=== PATIENT | female | born 1930 | race Caucasian/White ===

== ENCOUNTER → 2016-04-30 | Outpatient (CLI) | payer MEDICARE, OTHER ==
--- NOTE | 2016-04-30 10:33 | RAD ---
EXAM DESCRIPTION: Right hip series. CLINICAL HISTORY: Right ORIF femoral fracture. COMPARISON: April 11, 2016 TECHNIQUE: Two views were submitted for evaluation. FINDINGS: Healing intertrochanteric right femoral neck fracture. There is slight increased callus formation about the fracture site. Hardware is in appropriate position. No new findings IMPRESSION: Increased callus formation about the proximal femoral intertrochanteric fracture. Electronically signed by: Rayo Easton MD 04/30/2016 10:31
--- NOTE | 2016-04-30 10:35 | RAD ---
EXAM DESCRIPTION: XR WRIST 3 OR MORE VIEWS CLINICAL HISTORY: 86 y/o ,F, CLOSED FX OF DISTAL END OF RADIUS COMPARISON: April 11, 2016 IMPRESSION: Impaction fracture of the distal radius again noted. Angulation is unchanged. Callus formation has increased about the fracture site compatible with healing. Old distal ulnar-styloid process fracture again noted. Severe degenerative change of the base of the hand he 1st interphalangeal joint. Electronically signed by: Rayo Easton MD 04/30/2016 10:33
== END ==
LOC: RAD 09:22
PROVIDERS: ATTEND Orthopaedic Surgery
DX: S72.001D Fracture of unspecified part of neck of right femur, subsequent encounter for closed fracture with routine healing (principal); S52.591D Other fractures of lower end of right radius, subsequent encounter for closed fracture with routine healing

== ENCOUNTER → 2016-05-23 | Outpatient (CLI) | payer MEDICARE, OTHER ==
--- NOTE | 2016-05-23 10:12 | RAD ---
EXAM DESCRIPTION: Right hip series. CLINICAL HISTORY: Right hip fracture COMPARISON: April 11, 2016 TECHNIQUE: Two views were submitted for evaluation. FINDINGS: ORIF of a right intertrochanteric proximal femoral fracture. Fracture is likely healed. No evidence of hardware failure or osteolysis. IMPRESSION: Likely healed intertrochanteric fracture of right hip. The fracture line is poorly visualized on today's study. Electronically signed by: Rayo Easton MD 05/23/2016 10:11
--- NOTE | 2016-05-23 10:14 | RAD ---
EXAM DESCRIPTION: XR WRIST 3 OR MORE VIEWS CLINICAL HISTORY: 86 y/o ,F, FX DISTAL RADIUS COMPARISON: April 30, 2016. IMPRESSION: Impaction fracture of the distal radius with avulsion injury of the ulna styloid process. No definitive callus formation is noted on today's study. There may be increasing dorsal angulation of the distal fracture fragment when compared to prior. Electronically signed by: Rayo Easton MD 05/23/2016 10:13
== END ==
LOC: RAD 09:41
PROVIDERS: ATTEND Orthopaedic Surgery
DX: S52.591D Other fractures of lower end of right radius, subsequent encounter for closed fracture with routine healing (principal); S72.001D Fracture of unspecified part of neck of right femur, subsequent encounter for closed fracture with routine healing

== ENCOUNTER → 2016-06-13 | Outpatient (CLI) | payer MEDICARE, OTHER ==
--- NOTE | 2016-06-13 09:27 | RAD ---
EXAM DESCRIPTION: XR WRIST 3 OR MORE VIEWS CLINICAL HISTORY: 86 y/o ,F, FX COMPARISON: May 23, 2016 IMPRESSION: Impaction fracture of the distal radius with avulsion injury of the ulna styloid process. The fracture line is less apparent which is suggestive of increased healing. Stable dorsal angulation of the distal fracture fragment. Electronically signed by: Rayo Easton MD 06/13/2016 09:27
--- NOTE | 2016-06-13 09:35 | RAD ---
EXAM DESCRIPTION: XR HIP 2 OR MORE VIEWS CLINICAL HISTORY: FX COMPARISON: 23 May 2016 TECHNIQUE: AP/frog leg lateral FINDINGS: A gamma nail is observed in the right hip. Position is unchanged from the prior exam. Callus formation is observed at the fracture site. Degenerative changes are observed in the right sacroiliac joint. IMPRESSION: A gamma nail is observed bridging a prior fracture of the right hip. Callus formation is observed at the fracture site. There has been no interval change. Electronically signed by: Waldemar Biggs MD 06/13/2016 09:34
== END | disposition home or self-care (01) ==
LOC: RAD 08:45
PROVIDERS: ATTEND Orthopaedic Surgery
DX: S52.591D Other fractures of lower end of right radius, subsequent encounter for closed fracture with routine healing (principal)

== ENCOUNTER 2016-07-06 21:06 | Emergency (ER) | payer MEDICARE, OTHER ==
[2016-07-06 21:23] VITALS: O2SAT 98
[2016-07-06] MEDS ORDERED: ONDANSETRON INJ 4 MG/2 ML VIAL IV ONE (21:44)
[2016-07-06] MEDS ORDERED: NITROFURANTOIN MONOHYDRATE MAC 100 MG CAP PO ONE (22:45)
--- NOTE | 2016-07-06 23:58 | ED.PDOC ---
History of Present Illness - General Chief Complaint: Abdominal Pain Stated Complaint: nausea abd pain Time Seen by Provider: 07/06/16 22:25 Source: patient, RN notes reviewed, EMS Additional Information: Pt reports abdominal cramping along with some N/V. She reports she took some medicine prior to EMS arrival and then by the time she got to ER she felt better. Labs obtained to rule out metabolic abnormalities and assess for UTI. Pt found to have UTI. Also cardiac enzymes obtained - negative. Pt stable for d/c home with Rx for Macrobid 100 mg bid for 5 days. - History of Present Illness Timing/Duration: unsure Severity: mild Improving Factors: medication Worsening Factors: nothing Associated Symptoms: nausea/vomiting Allergies/Adverse Reactions: Allergies Codeine Allergy (Verified 02/17/16 23:13) Other Increased weakness and decreased respirations Methohexital [From Brevital Sodium] Allergy (Verified 02/17/16 23:13) Anaphylaxis Penicillins Allergy (Verified 02/17/16 23:13) Rash Sulfamethoxazole w/Trimethoprim [From Bactrim] Allergy (Verified 02/17/16 23:13) Other Increased weakness and decreased respirations Home Medications: Ambulatory Orders Atenolol [Tenormin] 50 mg PO BID 11/17/15 Atorvastatin Calcium [Lipitor] 10 mg PO QPM 11/17/15 Furosemide [Lasix] 20 mg PO DAILY PRN 11/17/15 Gabapentin 200 mg PO BID 11/17/15 Losartan Potassium 50 mg PO BID 11/17/15 Potassium Chloride [Micro-K] 10 meq PO DAILY PRN 11/17/15 Calcium Carbonate-Cholecalcife [Calcium 600 + D 600-200 mg-Unit] 1 tab PO DAILY 02/13/16 Omeprazole [Prilosec Cap] 20 mg PO DAILY 02/13/16 Cyclobenzaprine HCl [Flexeril] 10 mg PO Q8HR #20 tab 02/17/16 LORazepam [Ativan] 0.5 mg PO Q8H #10 tab 02/17/16 HYDROcodone 5MG/APAP 325MG [[place] 5/325] 1 - 2 ea PO Q4H PRN #30 tab 02/20/16 LORazepam [Ativan] 0.5 mg PO BEDTIME #30 tab 02/20/16 Rivaroxaban [Xarelto] 10 mg PO QD #26 tab 02/20/16 Nitrofurantoin Monohydrate Mac [Macrobid] 100 mg PO BID #10 cap 07/07/16 Review of Systems - Review of Systems Constitutional: States: no symptoms reported EENTM: States: no symptoms reported Respiratory: States: no symptoms reported Cardiology: States: no symptoms reported Gastrointestinal/Abdominal: States: see HPI, abdominal pain, nausea, vomiting Genitourinary: States: dysuria, frequency Musculoskeletal: States: no symptoms reported Skin: States: no symptoms reported Endocrine: States: no symptoms reported Hematologic/Lymphatic: States: no symptoms reported Past Medical History (General) - Patient Medical History Hx Seizures: No Hx Stroke: No Hx Dementia: No Hx Asthma: No Hx of COPD: No Hx Cardiac Disorders: Yes - hypertriglyceridemia Hx Congestive Heart Failure: No Hx Pacemaker: No Hx Hypertension: Yes Hx Thyroid Disease: No Hx Diabetes: No Hx Gastroesophageal Reflux: Yes - spastic colon Hx Renal Disease: No Hx Cancer: No Hx of HIV: No Hx Hepatitis C: No Hx MRSA: No - Vaccination History Hx Tetanus, Diphtheria Vaccination: No Hx Influenza Vaccination: No Hx Pneumococcal Vaccination: No Immunizations Up to Date: No - Social History Hx Tobacco Use: No Hx Chewing Tobacco Use: No Hx Alcohol Use: No Hx Substance Use: No Hx Substance Use Treatment: No Hx Depression: No Hx Physical Abuse: No Hx Emotional Abuse: No Hx Suspected Abuse: No - Female History Patient is a Female of Child Bearing Age (10 -59 yrs old): No Patient : No Family Medical History - Family History Father Living Status: Cause of : MS Hx Family Hypertension: Yes Physical Exam - Physical Exam General Appearance: Frail, No apparent distress Eye Exam: bilateral normal Ears, Nose, Throat: hearing grossly normal, normal ENT inspection Neck: non-tender, full range of motion, supple Respiratory: no respiratory distress, no accessory muscle use Cardiovascular/Chest: regular rate, rhythm Gastrointestinal/Abdominal: non tender, soft Back Exam: normal inspection Extremity: normal range of motion, non-tender 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, no motor/sensory deficits, alert, normal mood/affect, oriented x 3 Skin Exam: normal color Lymphatic: no adenopathy Progress - Results/Orders Results/Orders: 07/06/16 22:10 URINE CULTURE W/COLONY COUNT Stat Laboratory Results - last 24 hr 07/06/16 07/06/16 07/06/16 21:28 21:50 22:10 WBC 14.2 H RBC 5.29 Hgb 14.9 Hct 45.0 MCV 85.0 MCH 28.1 MCHC 33.2 RDW 14.6 H Plt Count 183 MPV 7.5 Absolute Neuts (auto) 11.40 H Absolute Lymphs (auto) 1.40 Absolute Monos (auto) 1.30 H Absolute Eos (auto) 0.10 Absolute Basos (auto) 0.00 Neutrophils % 79.9 H Lymphocytes % 9.9 L Monocytes % 9.0 Eosinophils % 0.9 L Basophils % 0.3 Sodium 144 Potassium 3.9 Chloride 109 Carbon Dioxide 24 Anion Gap 14.9 BUN 21 H Creatinine 0.93 BUN/Creatinine Ratio 22.6 H Random Glucose 104 Serum Osmolality 290.1 Calcium 9.4 Total Bilirubin 0.2 AST 24 ALT 18 Alkaline Phosphatase 74 Creatine Kinase 51 CK-MB (CK-2) 2.0 CK-MB (CK-2) % Not Reportable Troponin I < 0.02 Serum Total Protein 7.2 Albumin 4.0 Globulin 3.2 Albumin/Globulin Ratio 1.3 Urine Color Yellow Urine Appearance Clear Urine pH 5.5 Ur Specific [place] 1.025 Urine Protein Negative Urine Glucose (UA) Negative Urine Ketones Negative Urine Blood Trace-lysed H Urine Nitrite Negative Urine Bilirubin Negative Urine Urobilinogen 0.2 Ur Leukocyte Esterase Large H Urine RBC 1-3 Urine WBC >50 H Ur Epithelial Cells 5-10 Amorphous Sediment Trace Urine Bacteria 1+ Urine Mucus Trace Departure - Departure Clinical Impression: Acute cystitis without hematuria Time of Disposition: 00:08 Disposition: Discharge to Home or Self Care Condition: Fair Departure Forms: ED Discharge - Pt. Copy, Patient Portal Self Enrollment Instructions: DI for Abdominal Pain-Adult Referrals: Eusebio Andres MD [Primary Care Provider] - 1-5 Days Prescriptions: Nitrofurantoin Monohydrate Mac [Macrobid] 100 mg PO BID #10 cap Home Medications: Ambulatory Orders Atenolol [Tenormin] 50 mg PO BID 11/17/15 Atorvastatin Calcium [Lipitor] 10 mg PO QPM 11/17/15 Furosemide [Lasix] 20 mg PO DAILY PRN 11/17/15 Gabapentin 200 mg PO BID 11/17/15 Losartan Potassium 50 mg PO BID 11/17/15 Potassium Chloride [Micro-K] 10 meq PO DAILY PRN 11/17/15 Calcium Carbonate-Cholecalcife [Calcium 600 + D 600-200 mg-Unit] 1 tab PO DAILY 02/13/16 Omeprazole [Prilosec Cap] 20 mg PO DAILY 02/13/16 Cyclobenzaprine HCl [Flexeril] 10 mg PO Q8HR #20 tab 02/17/16 LORazepam [Ativan] 0.5 mg PO Q8H #10 tab 02/17/16 HYDROcodone 5MG/APAP 325MG [[place] 5/325] 1 - 2 ea PO Q4H PRN #30 tab 02/20/16 LORazepam [Ativan] 0.5 mg PO BEDTIME #30 tab 02/20/16 Rivaroxaban [Xarelto] 10 mg PO QD #26 tab 02/20/16 Nitrofurantoin Monohydrate Mac [Macrobid] 100 mg PO BID #10 cap 07/07/16 Additional Instructions: Continue previously prescribed medicine for IBS. Return to ER if condition worsens. Take antibiotics as prescribed. Have your primary care provider follow-up on the urine culture results when you are seen on Friday. Stay well hydrated with water - at least 1.5 to 2 liters a day.
[2016-07-07 00:57] VITALS: BP 153/72; TEMP 98.2
== END 2016-07-07 00:56 | disposition home or self-care (01) ==
LOC: ER 21:06
DX: N30.00 Acute cystitis without hematuria (principal); R11.2 Nausea with vomiting, unspecified; E78.1 Pure hyperglyceridemia; Z88.6 Allergy status to analgesic agent; Z88.0 Allergy status to penicillin; Z88.2 Allergy status to sulfonamides; Z79.899 Other long term (current) drug therapy; I10 Essential (primary) hypertension; K58.9 Irritable bowel syndrome, unspecified
CPT/HCPCS: 80053; 81001; 82550; 82553; 84484; 85025; 87086; J2405

== ENCOUNTER → 2016-07-18 | Outpatient (CLI) | payer MEDICARE, OTHER ==
--- NOTE | 2016-07-18 09:40 | RAD ---
Right wrist three views INDICATION: Distal radial fracture COMPARISON: June 13, 2016 IMPRESSION: There is impaction and dorsal angulation of the distal radius. There is an osseous fragment along the radial styloid without definitive union. There is an acquired appearing ulna positive variance related to the radial impaction. There is a large ununited ossicle at the ulnar styloid. Bones are diffusely osteopenic/osteoporotic. Moderate arthrosis of the basal joint of the thumb. No evidence of carpal instability. Prominent arthrosis of the first MCP joint and interphalangeal joint of thumb incidentally noted. Diffuse soft tissue swelling. Overall appearance of the wrist is unchanged. Electronically signed by: Clayton Flanagan MD 07/18/2016 9:39 AM CDT
--- NOTE | 2016-07-18 09:41 | RAD ---
EXAM DESCRIPTION: Hip,Right 2 Views CLINICAL HISTORY: 86 years Female, CLOSED FX OF FEMUR IMPRESSION: Two views of the right hip are compared to June 13, 2016. There is once again continued avulsion of the lesser trochanter. The hardware of the right hip is intact with no evidence of osteolysis. The previous femoral neck fracture is elbow visualized on today's exam likely compatible with healing. Degenerative change of the pubic symphysis and right sacroiliac joint. No new fracture noted. Electronically signed by: Rayo Easton MD 07/18/2016 9:40 AM CDT
== END | disposition home or self-care (01) ==
LOC: RAD 08:21
PROVIDERS: ATTEND Orthopaedic Surgery
DX: S72.001D Fracture of unspecified part of neck of right femur, subsequent encounter for closed fracture with routine healing (principal); S52.591D Other fractures of lower end of right radius, subsequent encounter for closed fracture with routine healing

== ENCOUNTER → 2016-08-29 | Outpatient (CLI) | payer MEDICARE, OTHER | LOC: BFHH 08:45 | PROVIDERS: ATTEND Emergency Medicine | DX: I10 Essential (primary) hypertension (principal); I12.9 Hypertensive chronic kidney disease with stage 1 through stage 4 chronic kidney disease, or unspecified chronic kidney disease; N18.9 Chronic kidney disease, unspecified ==

== ENCOUNTER → 2017-01-31 | Outpatient (CLI) | payer MEDICARE, OTHER | END | disposition home or self-care (01) | LOC: GMA 19:26 | PROVIDERS: ATTEND Nurse Practitioner Family | DX: N39.0 Urinary tract infection, site not specified (principal) ==

== ENCOUNTER → 2017-02-26 | Outpatient (CLI) | payer MEDICARE, OTHER | LOC: GMA 16:57 | PROVIDERS: ATTEND Physician Assistant | DX: N39.0 Urinary tract infection, site not specified (principal) ==

== ENCOUNTER → 2017-10-03 | Outpatient (CLI) | payer MEDICARE, OTHER ==
--- NOTE | 2017-10-03 17:50 | RAD ---
EXAM DESCRIPTION: Shoulder,Right 2 or More Views CLINICAL HISTORY: 87 years Female PAIN IN RT SHOULDER COMPARISON: None. TECHNIQUE: RIGHT shoulder two view FINDINGS: No acute fractures or dislocations identified. No osseous destructive lesions. Acromioclavicular joint appears maintained. IMPRESSION: No acute fracture or dislocation identified. Electronically signed by: Betty Stapleton MD 10/03/2017 5:49 PM CDT
== END ==
LOC: RAD 16:14
PROVIDERS: ATTEND Nurse Practitioner Family
DX: M25.511 Pain in right shoulder (principal)

== ENCOUNTER → 2018-10-15 | Outpatient (CLI) | payer MEDICARE, OTHER ==
--- NOTE | 2018-10-16 11:30 | MRI ---
EXAM DESCRIPTION: Abdomen CLINICAL HISTORY: 88 years Female, HEPATOMEGALY NOT ELSEWHERE CLASSIFIED COMPARISON: CT abdomen and pelvis 03/21/2014. TECHNIQUE: Multiphasic MRI of the abdomen was performed without IV contrast material. FINDINGS: Liver: Liver is enlarged measuring up to 17.3 cm the midclavicular line. There are multiple T2 hypertense lesions throughout the liver measuring up to 2.2 cm likely representing hepatic cysts. There is mild diffuse fatty infiltration of the liver parenchyma. Gallbladder and biliary tree: The gallbladder is normal. The biliary tree is normal. Pancreas: Normal. Spleen: Normal. Kidneys and adrenal glands: Normal. Peritoneum: No ascites or pathologic adenopathy. GI tract: The stomach and visualized bowel are normal. Thoracic structures: The visualized intrathoracic structures are normal. Bones: Slight levocurvature of the thoracic lumbar junction. IMPRESSION: 1. Enlarged and fatty liver. 2. Hepatic cysts. Electronically signed by: Eugene Whyte MD 10/16/2018 11:28 AM CDT
== END ==
LOC: MRI 07:57
PROVIDERS: ATTEND Emergency Medicine
DX: K76.0 Fatty (change of) liver, not elsewhere classified (principal); K76.89 Other specified diseases of liver

== ENCOUNTER 2018-12-14 10:05 | Observation (INO) | payer MEDICARE, OTHER ==
--- NOTE | 2018-12-14 11:09 | RAD ---
EXAM DESCRIPTION: Right RIBS, 3 radiographs CLINICAL HISTORY: right rib pain after fall FINDINGS/ IMPRESSION: Osteoporosis which limits assessment for subtle fractures. No displaced rib fracture identified. No pneumothorax or pleural effusion. No lytic or blastic bony lesion Electronically signed by: Zhao Alexander MD 12/14/2018 11:08 AM CDT
--- NOTE | 2018-12-14 13:31 | ED.PDOC ---
History of Present Illness - General Chief Complaint: Trauma Time Seen by Provider: 12/14/18 10:17 Source: patient Exam Limitations: no limitations - History of Present Illness Initial Comments: patient's 88-year-old female presenting to the emergency room after having fallen while working in her yard at home. The patient landed on something on her right rib cage and she is having some pain there with movement and taking a deep breath. No obvious crepitus. There is a little bit of bruising. There is significant pain with palpation. Normal lung sounds underneath. Additionally she is having some pain in her left foot. Primarily on the lateral aspect. No syncope or near-syncope. The patient is alert and active and interactive. No other areas of pain. She did receive a dose of fentanyl for pain control with EMS. She is unable to ambulate steadily on her own at this point secondary to uncontrolled pain. Timing/Duration: 1-3 hours Severity: severe Improving Factors: medication Worsening Factors: movement Associated Symptoms: chest pain Allergies/Adverse Reactions: Allergies Codeine Allergy (Verified 02/17/16 23:13) Other Increased weakness and decreased respirations Methohexital [From Brevital Sodium] Allergy (Verified 02/17/16 23:13) Anaphylaxis Penicillins Allergy (Verified 02/17/16 23:13) Rash Sulfamethoxazole w/Trimethoprim [From Bactrim] Allergy (Verified 02/17/16 23:13) Other Increased weakness and decreased respirations Home Medications: Ambulatory Orders Atorvastatin Calcium [Lipitor] 10 mg PO QPM 11/17/15 Gabapentin 100 mg PO BID 11/17/15 Losartan Potassium 50 mg PO DAILY 11/17/15 Omeprazole [Prilosec Cap] 40 mg PO DAILY 02/13/16 Amlodipine Besylate 5 mg PO DAILY 12/14/18 Aspirin [Aspirin EC] 81 mg PO DAILY 12/14/18 Clonidine HCl 0.1 mg PO BID PRN 12/14/18 Dicyclomine HCl [Bentyl] 10 mg PO TID 12/14/18 LORazepam [Ativan] 0.5 mg PO Q6H PRN 12/14/18 Lactobacillus [Floranex] 1 tab PO DAILY 12/14/18 Lactulose [Constulose] 10 gm PO BID PRN 12/14/18 Tramadol HCl 50 mg PO Q6H PRN 12/14/18 Review of Systems - Review of Systems Constitutional: States: no symptoms reported EENTM: States: no symptoms reported Respiratory: States: no symptoms reported Cardiology: States: chest pain Gastrointestinal/Abdominal: States: no symptoms reported Genitourinary: States: no symptoms reported Musculoskeletal: States: see HPI Skin: States: no symptoms reported Neurological: States: no symptoms reported Endocrine: States: no symptoms reported All other Systems: No Change from Baseline Past Medical History (General) - Patient Medical History Hx Seizures: No Hx Stroke: No Hx Dementia: No Hx Asthma: No Hx of COPD: No Hx Cardiac Disorders: Yes - hypertriglyceridemia Hx Congestive Heart Failure: No Hx Pacemaker: No Hx Hypertension: Yes Hx Thyroid Disease: No Hx Diabetes: No Hx Gastroesophageal Reflux: Yes - spastic colon Hx Renal Disease: No Hx Cancer: No Hx of HIV: No Hx Hepatitis C: No Hx MRSA: No - Vaccination History Hx Tetanus, Diphtheria Vaccination: No Hx Influenza Vaccination: No Hx Pneumococcal Vaccination: No - Social History Hx Tobacco Use: No Hx Chewing Tobacco Use: No Hx Alcohol Use: No Hx Substance Use: No Hx Substance Use Treatment: No Hx Depression: No Hx Physical Abuse: No Hx Emotional Abuse: No Hx Suspected Abuse: No - Female History Patient : No Family Medical History - Family History Father Living Status: Cause of : [place] Hx Family Hypertension: Yes Physical Exam - Physical Exam General Appearance: Alert, Obvious distress Eye Exam: bilateral normal Ears, Nose, Throat: hearing grossly normal, normal pharynx Neck: full range of motion, supple Respiratory: lungs clear, normal breath sounds, no respiratory distress, no accessory muscle use, other - see history of present illness Cardiovascular/Chest: normal peripheral pulses, no edema, other - regular rate Peripheral Pulses: radial,right: 2+, radial,left: 2+, dorsalis pedis,right: 2+, dorsalis pedis,left: 2+ Gastrointestinal/Abdominal: non tender, soft Rectal Exam: deferred Back Exam: no CVA tenderness, no vertebral tenderness Extremity: normal range of motion, no pedal edema, no calf tenderness, normal capillary refill, other - ee history of present illness 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 The patient at least has a right lateral chest contusion developing. She may have some cracked ribs however x-ray shows no evidence of any overt fractures. The patient also has a fifth metatarsal fracture of the left foot. The patient will be placed in a walking boot for this. At this point in time the patient is in too much pain to ambulate in her current condition. She does live alone. The patient is going to be put in for observation overnight for pain control as well as for gait reassessment in the morning. if patient fails to develop independence with pain control, then she will likely need to go to a short-term rehabilitation facility. The patient is at a very advanced age. Departure - Departure Clinical Impression: Fracture of fifth metatarsal bone Qualifiers: Encounter type: initial encounter Fracture type: closed Fracture alignment: nondisplaced Laterality: left Qualified Code(s): S92.355A - Nondisplaced fracture of fifth metatarsal bone, left foot, initial encounter for closed fracture Chest wall contusion Qualifiers: Encounter type: initial encounter Laterality: right Qualified Code(s): S20.211A - Contusion of right front wall of thorax, initial encounter Disposition: Admit Patient Departure Forms: ED Discharge - Pt. Copy, Patient Portal Self Enrollment Referrals: RUTHANN WATTS [Primary Care Provider] - 1-2 Weeks Home Medications: Ambulatory Orders Atorvastatin Calcium [Lipitor] 10 mg PO QPM 11/17/15 Gabapentin 100 mg PO BID 11/17/15 Losartan Potassium 50 mg PO DAILY 11/17/15 Omeprazole [Prilosec Cap] 40 mg PO DAILY 02/13/16 Amlodipine Besylate 5 mg PO DAILY 12/14/18 Aspirin [Aspirin EC] 81 mg PO DAILY 12/14/18 Clonidine HCl 0.1 mg PO BID PRN 12/14/18 Dicyclomine HCl [Bentyl] 10 mg PO TID 12/14/18 LORazepam [Ativan] 0.5 mg PO Q6H PRN 12/14/18 Lactobacillus [Floranex] 1 tab PO DAILY 12/14/18 Lactulose [Constulose] 10 gm PO BID PRN 12/14/18 Tramadol HCl 50 mg PO Q6H PRN 12/14/18 Decision To Admit - Decistion To Admit Decision to Admit Reason: Medical Nature Decision to Admit Date: 12/14/18 Decision to Admit Time: 13:36
[2018-12-14] MEDS ORDERED: MORPHINE SULFATE INJ 10 MG/ML VIAL IV ONE (13:59)
[2018-12-14] MEDS ORDERED: fentaNYL CITRATE INJ 50 MCG/ML AMP ONE (14:04)
--- NOTE | 2018-12-14 14:27 | HP ---
SUPERVISING PHYSICIAN: Zhao Dean M.D. CHIEF COMPLAINT: Rib pain after a trauma. HISTORY OF PRESENT ILLNESS: This is an 88 year-old female patient who presented to the Emergency Room after she had fallen while working in her yard at home. She landed on something on her right rib cage and had pain in the right rib region, and had a difficult time taking a deep breath. She had actually gone to Dr. Sharp's office, her primary care physician, due to her ankle pain. She does have a metatarsal fracture on her left foot. She had some pain in her left foot. She had been placed in a boot at her primary care physician's office and then sent over here for her uncontrolled pain in the right rib area. In the Emergency Room her vital signs showed a temperature of 97.7 with a heart rate of 68, blood pressure 177/75, respiratory rate 16, O2 sat 99% on room air. Lab was done and her CBC was basically within normal limits. Electrolytes were within normal limits with a BUN that was symptom elevated at 19, glucose was 110, creatinine kinase 439. Rib x-rays were done that shows osteoporosis which limits assessment of her subtle fractures. No displaced rib fracture identified. No pneumothorax, pleural effusion, lytic or blastic bony lesions. She was given Fentanyl for pain. She was unable to walk due to the pain in her foot and difficulty ambulating with the boot. I was called for hospital admission. PAST MEDICAL HISTORY: 1. Traumatic fall approximately 3 years ago that required surgical intervention of the right hip. 2. Hyperlipidemia on medications. 3. Hypertension on medications. 4. Gastroesophageal reflux disease. 5. Osteoporosis. 6. Irritable bowel syndrome. 7. Chronic renal insufficiency secondary to renal artery stenosis. 8. Peripheral neuropathy. 9. Seasonal allergies. PAST SURGICAL HISTORY: 1. Gamma nail repair of an intertrochanteric fracture of the right hip in January of 2016. 2. Appendectomy. 3. Hysterectomy. 4. Left tympanostomy tube placement in her left eardrum. HOME MEDICATIONS: Per the EMR and awaiting verification. ALLERGIES: MORPHINE, DILAUDID, CODEINE, PENICILLIN, SULFA and METHOHEXITAL. FAMILY HISTORY: Noncontributory. SOCIAL HISTORY: She is a . She lives at home alone in [place]. There is no history of tobacco, ETOH or illicit drug use. REVIEW OF SYSTEMS: GENERAL: Negative for fever, chills or weight changes. HEENT: Negative for sinus symptoms, ear pain, vision changes or sore throat. RESPIRATORY: Positive for shortness of breath due to inability to deep breathe. Negative for coughing or wheezing. CARDIAC: Negative for chest pain, palpitations or tachycardia. GASTROINTESTINAL: Negative for abdominal pain, nausea, vomiting, diarrhea or constipation. GENITOURINARY: Positive for polyuria. Negative for hematuria or dysuria. MUSCULOSKELETAL: As per the history of present illness. SKIN: Negative for lesions or rashes. NEUROLOGIC: Negative for seizures, headaches or dizziness. PHYSICAL EXAMINATION: VITAL SIGNS: Temperature 98.1, heart rate 95, blood pressure 157/74, respiratory rate 20, O2 sat 97% on room air. GENERAL: This is an 88 year-old female patient who is sitting up in her hospital bed. She is in no acute distress. HEENT: Normocephalic and atraumatic. Pupils are equal and reactive. Oropharynx is clear. NECK: Supple without mass. RESPIRATORY: Essentially clear to auscultation bilaterally. She does have a difficult time taking a deep breath to command due to pain in her right side. CARDIOVASCULAR: Regular rate and rhythm. GASTROINTESTINAL: Abdomen is soft, nondistended, non-tender. Bowel sounds are positive. EXTREMITIES: She has a boot to her left foot. Bilateral pedal pulses are palpable at +2. She has a Kerlix to her right arm covering some abrasions. MUSCULOSKELETAL: She is tender to palpation along the right lateral rib area. No crepitus noted. NEUROLOGIC: She is awake, alert and oriented times three. Cranial nerves II- XII are grossly intact. SKIN: Warm and dry. She does have some ecchymosis along the right lateral rib area. LABORATORY: Labs and films are as per the history of present illness. It is to be noted that her left foot x-ray is not available at this time. ASSESSMENT: 1. Intractable pain secondary to right rib pain after same level fall at home. 2. Right metatarsal fracture secondary to same level fall. 3. Hypertension. 4. Gastroesophageal reflux disease. 5. Mild anxiety. PLAN: The patient has been placed in observation in the hospital. I have placed her on Fentanyl for pain and will attempt to transition her to Tramadol tomorrow. I have also consulted Physical Therapy for gait training as well as the possibility of transfer to a rehab facility versus outpatient physical therapy. She is very independent at home and it may be more helpful for her to go to a rehab facility for a week or so to optimize her strengthening and conditioning. I will restart her home medications as soon as they are available. I have also given her some Zofran for nausea. She is on a PPI for ulcer prophylaxis and Lovenox for DVT prophylaxis. I have also ordered a urinalysis due to her increased frequency of urinating. Will continue to monitor closely and follow as needed. #[id number] [facility]
[2018-12-14] MEDS ORDERED: SODIUM CHLORIDE 0.9% (FLUSH) 10 ML SYG IV PRN (14:54)
[2018-12-14] MEDS ORDERED: fentaNYL CITRATE INJ 50 MCG/ML AMP IV ONE (14:55)
[2018-12-14] MEDS ORDERED: IV SET AND CAP CHANGE INJ INJ SCH (15:00)
[2018-12-14] MEDS: fentaNYL CITRATE INJ 50 MCG/ML AMP IV PRN ×2 (16:46→20:33)
[2018-12-14] MEDS ORDERED: cloNIDine HCL 0.1 MG TAB PO PRN (17:40)
[2018-12-14] MEDS: ATORVASTATIN 10 MG TAB PO SCH (18:21)
[2018-12-14] MEDS ORDERED: ATENOLOL 25 MG TAB ONE (19:16)
[2018-12-14] MEDS ORDERED: OMEPRAZOLE CAP 20 MG CAP ONE (19:17)
[2018-12-14] MEDS: ENOXAPARIN SODIUM 40 MG/0.4 ML SYG SUBCU SCH (20:16)
[2018-12-14] MEDS: amLODIPine BESYLATE 5 MG TAB PO SCH (20:17)
[2018-12-14] MEDS: SODIUM CHLORIDE 0.9% (FLUSH) 10 ML SYG IV SCH (20:17)
[2018-12-14] MEDS ORDERED: NON-FORMULARY MEDICATION 1 EA MIS (Atenolol [Atenolol] 100 MG) PO SCH (21:00)
[2018-12-14] MEDS: LORazepam 0.5 MG TAB PO PRN (22:31)
[2018-12-14] MEDS ORDERED: traMADol HCL 50 MG TAB PO PRN (22:41)
[2018-12-14] MEDS ORDERED: ONDANSETRON INJ 4 MG/2 ML VIAL IV PRN (22:57)
[2018-12-15] MEDS: ACETAMINOPHEN 500 MG TAB PO PRN ×3 (02:37→21:29)
[2018-12-15] MEDS: OMEPRAZOLE CAP 20 MG CAP PO SCH (06:20)
[2018-12-15] MEDS ORDERED: LOSARTAN POTASSIUM 100 MG TAB ONE (06:50)
[2018-12-15] MEDS: SODIUM CHLORIDE 0.9% (FLUSH) 10 ML SYG IV SCH (09:53)
[2018-12-15] MEDS: LOSARTAN POTASSIUM 100 MG TAB PO SCH (09:54)
[2018-12-15] MEDS: ASPIRIN (ENTERIC COATED) 81 MG TAB PO SCH (09:54)
--- NOTE | 2018-12-15 13:43 | PN ---
SUPERVISING PHYSICIAN: Zhao Dean MD DATE: 12/15/18 SUBJECTIVE: The patient is sitting up on the side of her bed. She complains of dizziness and although her ribs hurt, the fentanyl pain medication makes her dizzy. We discussed transitioning her from IV fentanyl to tramadol. She also said she had taken Neurontin in the past and that it helped, but she has not taken it for a while, so we will restart her Neurontin. She denies any shortness of breath or chest pain. We also discussed her going to [facility] since she is having a difficult time walking without assistance and she still is in quite a bit of rib pain. OBJECTIVE: VITAL SIGNS: Temperature 98.2. Heart rate 67. Blood pressure 119/67. Respiratory rate 18. O2 saturation 97% on room air. RESPIRATORY: Essentially clear to auscultation bilaterally. CARDIAC: Regular rate and rhythm. GASTROINTESTINAL: Abdomen is soft, nondistended, nontender. Bowel sounds are positive. EXTREMITIES: Bilateral pedal pulses are palpable at +2. She does have a walking boot on her left foot. Her right arm has a dressing with Kerlix that is dry and intact. NEUROLOGIC: Awake, alert and oriented times three. LABORATORY: There are no labs or films to report at this time. ASSESSMENT: 1. Intractable pain secondary to right rib pain after same level fall at home. 2. Right metatarsal fracture secondary to same level fall. 3. Hypertension. 4. Gastroesophageal reflux disease. 5. Mild anxiety. PLAN: We will continue present supportive care. [facility] will come to evaluate the patient in the morning for admission. Due to her dizziness, we will try to transition the patient from her IV fentanyl to oral tramadol. I have also given her some Neurontin to see if that helps with the neuropathy as well as the pain. Hopefully she can be discharged tomorrow to [facility] for rehabilitation as she will be unable to go home by herself as well as she is unsafe to walk. She will also get physical therapy this afternoon and in the morning. We will continue to monitor the patient closely and follow as needed. #[id number] [facility]
[2018-12-15] MEDS ORDERED: GABAPENTIN 100 MG CAP PO ONE (15:08)
[2018-12-15] MEDS: ATORVASTATIN 10 MG TAB PO SCH (17:33)
[2018-12-15] MEDS: amLODIPine BESYLATE 5 MG TAB PO SCH (21:29)
[2018-12-15] MEDS: ATENOLOL 25 MG TAB PO SCH (21:29)
[2018-12-15] MEDS: ENOXAPARIN SODIUM 40 MG/0.4 ML SYG SUBCU SCH (21:29)
[2018-12-15] MEDS: LORazepam 0.5 MG TAB PO PRN (21:29)
[2018-12-16] MEDS: SODIUM CHLORIDE 0.9% (FLUSH) 10 ML SYG IV SCH ×3 (01:26→20:46)
[2018-12-16] MEDS: OMEPRAZOLE CAP 20 MG CAP PO SCH (06:34)
[2018-12-16] MEDS: ACETAMINOPHEN 500 MG TAB PO PRN ×3 (06:39→18:42)
[2018-12-16] MEDS: ASPIRIN (ENTERIC COATED) 81 MG TAB PO SCH (09:19)
[2018-12-16] MEDS: LOSARTAN POTASSIUM 100 MG TAB PO SCH (10:45)
[2018-12-16] MEDS: ATORVASTATIN 10 MG TAB PO SCH (18:08)
[2018-12-16] MEDS: LORazepam 0.5 MG TAB PO PRN (18:09)
--- NOTE | 2018-12-16 20:41 | PN ---
DATE: 12/16/18 SUPERVISING PHYSICIAN: Zhao Dean M.D. SUBJECTIVE: The patient has been doing fairly well this morning. She does report that she just feels exhausted. She has been evaluated by [facility] and hopefully will discharge tomorrow to continue with physical therapy efforts. She notes her pain has been well controlled. Blood pressure has been on the lower side than her normal but nothing that has been worrisome, but possibly could be resulting in her not feeling very well this morning. OBJECTIVE: VITAL SIGNS: Temperature 98.4, pulse 76, blood pressure 133//58, respirations 18, satting 96% on room air. Weight 56.1 kg. GENERAL: The patient is resting comfortably. Appears to be in no acute distress. She is alert. CHEST: Lungs are clear to auscultation. HEART: Regular rate and rhythm. ABDOMEN: Soft, non-tender. Positive bowel sounds. EXTREMITIES: Walking boot is in place on the left leg with capillary refill brisk and pulses strong. Her right arm has a dressing in place with a Kerlix which is showing to be dry and clean. NEUROLOGIC: She is alert and oriented times three. LABORATORY: No additional laboratory studies today. ASSESSMENT: 1. Intractable pain secondary to right rib pain after same level fall at home. 2. Right metatarsal fracture secondary to same level fall. 3. Hypertension. 4. Gastroesophageal reflux disease. 5. Mild anxiety. PLAN: [facility] is evaluating the patient today. Anticipate hopefully discharge tomorrow once a bed is available. She continues on pain management regimen. Until we can transition her to an outpatient rehab facility for continuing physical therapy will continue to monitor and treat as needed. #[id number] [facility]
[2018-12-16] MEDS: amLODIPine BESYLATE 5 MG TAB PO SCH (20:45)
[2018-12-16] MEDS: ATENOLOL 25 MG TAB PO SCH (20:45)
[2018-12-16] MEDS: ENOXAPARIN SODIUM 40 MG/0.4 ML SYG SUBCU SCH ×2 (20:46→20:48)
[2018-12-17] MEDS: fentaNYL CITRATE INJ 50 MCG/ML AMP IV PRN ×2 (02:46→06:54)
[2018-12-17] MEDS: OMEPRAZOLE CAP 20 MG CAP PO SCH (06:38)
[2018-12-17] MEDS: ASPIRIN (ENTERIC COATED) 81 MG TAB PO SCH (10:56)
[2018-12-17] MEDS: SODIUM CHLORIDE 0.9% (FLUSH) 10 ML SYG IV SCH (10:56)
[2018-12-17 12:22] VITALS: TEMP 98.6; O2SAT 98
[2018-12-17 14:15] VITALS: BP 128/66
--- NOTE | 2018-12-29 08:07 | DS ---
SUPERVISING PHYSICIAN: Zhao Dean MD ADMISSION DIAGNOSIS: 1. Intractable pain secondary to right rib pain after same level fall at home. 2. Right metatarsal fracture secondary to same level fall. 3. Hypertension. 4. Gastroesophageal reflux disease. 5. Mild anxiety. DISCHARGE DIAGNOSIS: 1. Intractable pain secondary to right rib pain after same level fall at home. 2. Right metatarsal fracture secondary to same level fall. 3. Hypertension. 4. Gastroesophageal reflux disease. 5. Mild anxiety. REASON FOR HOSPITALIZATION: This is an 88 year-old female patient who presented to the Emergency Room after she had fallen while working in her yard at home. She landed on something on her right rib cage and had pain in the right rib region, and had a difficult time taking a deep breath. She had actually gone to Dr. Sharp's office, her primary care physician, due to her ankle pain. She does have a metatarsal fracture on her left foot. She had some pain in her left foot. She had been placed in a boot at her primary care physician's office and then sent over here for her uncontrolled pain in the right rib area. In the Emergency Room her vital signs showed a temperature of 97.7 with a heart rate of 68, blood pressure 177/75, respiratory rate 16, O2 sat 99% on room air. Lab was done and her CBC was basically within normal limits. Electrolytes were within normal limits with a BUN that was symptom elevated at 19, glucose was 110, creatinine kinase 439. Rib x-rays were done that shows osteoporosis which limits assessment of her subtle fractures. No displaced rib fracture identified. No pneumothorax, pleural effusion, lytic or blastic bony lesions. She was given Fentanyl for pain. She was unable to walk due to the pain in her foot and difficulty ambulating with the boot. I was called for hospital admission. LABORATORY: CBC within normal limits. Chemistry showed normal electrolytes. BUN 19, creatinine 1.25. Liver functions all within normal limits. CPK was elevated at 439. Troponin less than 0.02. Urinalysis showed trace blood, small amount of leukocyte esterase, 3 to 5 RBCs, 1+ bacteria. MICROBIOLOGY: Urine culture showed 250,000 colony forming units per mL, urogenital bera present, no common pathogen. RADIOLOGY: She had a rib series in the Emergency Room prior to admission that showed osteoporosis of the right ribs which limits assessment for subtle rib fractures, no displaced rib fracture identified, no pleural effusion, no pneumothorax, no lytic or blastic bony lesions. HOSPITAL COURSE: Ms. Jose was admitted as noted above on 12/14/18 after she sustained a fall and was having intractable pain in the responsibilities due to the fall as well as a right metatarsal fracture. She was stable clinically and was needing physical therapy long-term and was accepted to [facility] for ongoing physical therapy on the date of discharge. DISCHARGE ASSESSMENT: VITAL SIGNS: Temperature 98.6. Pulse 72. Blood pressure 128/66. Respirations 16. Saturation 98% on room air. GENERAL: The patient appeared to be in no acute distress. She was alert. CHEST: Lungs clear to auscultation. HEART: Regular rate and rhythm. ABDOMEN: Soft, nontender, positive bowel sounds. EXTREMITIES: Walking boot is in place on the left leg. Capillary refill is brisk and pulses strong. On the right arm, dressing is in place with Kerlix which is warm, dry and clean. NEUROLOGIC: Alert and oriented times 3. PLAN: Ms. Jose was discharged on 12/17/18 and transferred to [facility]. She was to resume her home medications as previous and return to the hospital should she have any worsening of discharge. Diet at discharge was regular diet as tolerated. Activity as per physical therapy with evaluation and treatment. No medications were prescribed at discharge. All medications prior to hospitalization were continued. DISPOSITION: The patient was transferred to [facility] in [place], [place]. CONDITION AT DISCHARGE: Stable and improved. #[id number] [facility]
== END 2018-12-17 17:25 ==
LOC: ER 10:05 → MS 14:25
PROVIDERS: ADMIT Nurse Practitioner Acute Care; ATTEND Nurse Practitioner Family
DX: S92.352A Displaced fracture of fifth metatarsal bone, left foot, initial encounter for closed fracture (principal); S20.211A Contusion of right front wall of thorax, initial encounter; G89.11 Acute pain due to trauma; I12.9 Hypertensive chronic kidney disease with stage 1 through stage 4 chronic kidney disease, or unspecified chronic kidney disease; N18.9 Chronic kidney disease, unspecified; G62.9 Polyneuropathy, unspecified; E78.5 Hyperlipidemia, unspecified; K21.9 Gastro-esophageal reflux disease without esophagitis; F41.9 Anxiety disorder, unspecified; E78.1 Pure hyperglyceridemia; K58.9 Irritable bowel syndrome, unspecified; M81.0 Age-related osteoporosis without current pathological fracture; W18.30XA Fall on same level, unspecified, initial encounter; Y93.H2 Activity, gardening and landscaping; Y92.007 Garden or yard of unspecified non-institutional (private) residence as the place of occurrence of the external cause; Z79.891 Long term (current) use of opiate analgesic; Z79.82 Long term (current) use of aspirin; Z79.899 Other long term (current) drug therapy; Z88.0 Allergy status to penicillin; Z88.2 Allergy status to sulfonamides; Z88.6 Allergy status to analgesic agent; Z88.8 Allergy status to other drugs, medicaments and biological substances; Z60.2 Problems related to living alone
CPT/HCPCS: 96374; 96376 ×2; J3010 ×5; 82553; 80053; 87086; 36415; 81001; 85025; 82550; 84484; 71101; 94760 ×5; 97116 ×6; G8978; G8979; 97162; 99285; G0378

== ENCOUNTER 2019-04-18 17:34 | Emergency (ER) | payer MEDICARE, OTHER ==
[2019-04-18] MEDS ORDERED: MORPHINE SULFATE INJ 10 MG/ML VIAL IV ONE (17:54)
[2019-04-18] MEDS ORDERED: ONDANSETRON INJ 4 MG/2 ML VIAL IV ONE (17:54)
[2019-04-18] MEDS ORDERED: SODIUM CHLORIDE 0.9% 1000ML 1,000 ML IVS ONE (17:54)
--- NOTE | 2019-04-18 17:58 | ED.PDOC ---
History of Present Illness - General Chief Complaint: GI Problem Stated Complaint: N/V/D, lethargy, epigastric pain Time Seen by Provider: 04/18/19 17:51 Information Source: patient, RN notes reviewed, Vital Signs reviewed, family Exam Limitations: no limitations - History of Present Illness Initial Comments: 89 yo female who presents to ED with family member for 24 hour h/o NVD. States she was with a friend yesterday who had cough and URI symptoms. Pt began to have crampy upper abdominal pain and diarrhea late last night and developed vomiting x 3 today. Denies fever, chills, CP, SOB or urinarry complaints. States she took a zofran today, but vomited immediately after. Abdominal Pain Onset Location: epigastric Pain Radiation: no radiation Quality: cramping Timing/Duration: 24 hours Improving Factors: nothing Worsening Factors: nothing Associated Symptoms: diarrhea, nausea/vomiting Review of Systems - Review of Systems Constitutional: States: malaise. Denies: chills, fever, weakness EENTM: Denies: blurred vision, nose congestion, throat pain Respiratory: Denies: cough, short of breath Cardiology: Denies: chest pain, edema, palpitations, syncope Gastrointestinal/Abdominal: States: abdominal pain, diarrhea, nausea, vomiting Genitourinary: Denies: dysuria, frequency, hematuria Musculoskeletal: Denies: back pain, neck pain Skin: States: no symptoms reported Neurological: Denies: headache, paresthesia, tingling Hematologic/Lymphatic: States: no symptoms reported All other Systems: Reviewed and Negative Past Medical History (General) - Patient Medical History Hx Seizures: No Hx Stroke: No Hx Dementia: No Hx Asthma: No Hx of COPD: No Hx Cardiac Disorders: Yes - hypertriglyceridemia Hx Congestive Heart Failure: No Hx Pacemaker: No Hx Hypertension: Yes Hx Thyroid Disease: No Hx Diabetes: No Hx Gastroesophageal Reflux: Yes - spastic colon Hx Renal Disease: No Hx Cancer: No Hx of HIV: No Hx Hepatitis C: No Hx MRSA: No - Vaccination History Hx Tetanus, Diphtheria Vaccination: No Hx Influenza Vaccination: No Hx Pneumococcal Vaccination: No - Social History Hx Tobacco Use: No Hx Chewing Tobacco Use: No Hx Alcohol Use: No Hx Substance Use: No Hx Substance Use Treatment: No Hx Depression: No Hx Physical Abuse: No Hx Emotional Abuse: No Hx Suspected Abuse: No - Female History Patient : No Family Medical History - Family History Father Living Status: Cause of : [place] Hx Family Hypertension: Yes Physical Exam - Physical Exam General Appearance: Alert, Ill Appearing, Other - Mild distress Eyes, Ears, Nose, Throat Exam: pharynx normal Neck: non-tender, full range of motion, supple Respiratory: chest non-tender, lungs clear, normal breath sounds, no respiratory distress Cardiovascular/Chest: regular rate, rhythm, no edema, no murmur Gastrointestinal/Abdominal: soft, other - Mild TTP in epigastrium. No guarrding or rigidity Back Exam: no CVA tenderness, no vertebral tenderness Extremity: normal range of motion, non-tender, no calf tenderness Neurologic: no motor/sensory deficits, alert, normal mood/affect Progress - Progress Progress: 04/18/19 20:47 Pt presents with 24 hour h/o NVD and crampy abdominal pain. Labs and imaging reassuring. Has possible early UTI on UA. Will treat with Keflex and Zofran. Feels significantly improved post IVF and zofran. Now tolerating po fluids well. Feels comfortable going home and will f/u with pcp in 1-2 days for recheck. srp given. - Results/Orders Results/Orders: EXAM: Abdoment/Pelvis w/o Contrast CLINICAL INDICATION: Abdominal pain. COMP ARISON: 03/21/2014 TECHNIQUE: The CT scan was done using contiguous axial 2.5 mm noncontrast sections through the abdomen and pelvis. This exam was performed according to our departmental dose-optimization program, which includes automated exposure control, adjustment of the mA and/or kV according to patient size and/or use of iterative reconstruction technique. FINDINGS: The visualized portions of the lung bases are clear. There are several simple cysts in the liver the largest in the left hepatic lobe measuring 2.3 x 1.9 cm. The liver and gallbladder are otherwise unremarkable. The kidneys, adrenal glands, spleen, and pancreas have an unremarkable noncontrast CT appearance. The aorta contains atherosclerotic calcifications with no evidence of aneurysm. There are no dilated loops of small bowel. Diverticulosis of the colon is noted without findings of acute diverticulitis. The uterus is surgically absent. Surgical changes are noted involving the right hip. There is no free air, free fluid, or abscess. The appendix is not clearly identified. IMPRESSION: 1. No evidence of an acute intra-abdominal process. 2. Diverticulosis. Laboratory Results - last 24 hr 04/18/19 04/18/19 04/18/19 19:45 19:45 20:20 WBC 10.6 RBC 5.03 Hgb 14.4 Hct 44.0 MCV 87.6 MCH 28.7 MCHC 32.8 L RDW 14.3 Plt Count 146 MPV 7.8 Absolute Neuts (auto) 9.00 H Absolute Lymphs (auto) 0.70 L Absolute Monos (auto) 0.80 Absolute Eos (auto) 0.10 Absolute Basos (auto) 0.00 Neutrophils % 85.0 H Lymphocytes % 6.2 L Monocytes % 7.9 Eosinophils % 0.8 L Basophils % 0.1 Sodium 141 Potassium 3.8 Chloride 108 Carbon Dioxide 20 L Anion Gap 16.8 BUN 21 H Creatinine 1.05 BUN/Creatinine Ratio 20.0 Random Glucose 113 H Serum Osmolality 285.0 Calcium 9.4 Total Bilirubin 0.5 AST 27 ALT 19 Alkaline Phosphatase 47 Serum Total Protein 6.6 Albumin 3.7 Globulin 2.9 Albumin/Globulin Ratio 1.3 Lipase 36 Urine Color Yellow Urine Appearance Clear Urine pH 5.0 Ur Specific [place] 1.025 Urine Protein Negative Urine Glucose (UA) Negative Urine Ketones Negative Urine Blood Trace-lysed H Urine Nitrite Negative Urine Bilirubin Negative Urine Urobilinogen 0.2 Ur Leukocyte Esterase Trace H Urine RBC 0-1 Urine WBC 5-10 H Ur Epithelial Cells 1-3 Urine Bacteria Rare Departure - Departure Clinical Impression: Acute cystitis without hematuria, Gastroenteritis Abdominal pain Qualifiers: Abdominal location: upper abdomen, unspecified Qualified Code(s): R10.10 - Upper abdominal pain, unspecified Time of Disposition: 20:49 Disposition: Discharge to Home or Self Care Condition: Good Departure Forms: ED Discharge - Pt. Copy, Patient Portal Self Enrollment Instructions: DI for Abdominal Pain-Adult Diet: bland diet Activity: increase activity as tolerated Referrals: RUTHANN WATTS [Primary Care Provider] - 1-2 Days Prescriptions: Ondansetron HCl [Zofran] 4 mg PO Q6HR PRN #15 tab PRN Reason: Nausea Home Medications: Ambulatory Orders Atorvastatin Calcium [Lipitor] 10 mg PO QPM 11/17/15 Losartan Potassium 100 mg PO DAILY 11/17/15 Omeprazole [Prilosec Cap] 40 mg PO DAILY 02/13/16 Amlodipine Besylate 5 mg PO DAILY 12/14/18 Aspirin [Aspirin EC] 81 mg PO DAILY 12/14/18 Atenolol 100 mg PO BEDTIME 12/14/18 Clonidine HCl 0.1 mg PO BID PRN 12/14/18 LORazepam [Ativan] 0.5 mg PO Q6H PRN 12/14/18 Ondansetron HCl [Zofran] 4 mg PO Q6HR PRN #15 tab 04/18/19
--- NOTE | 2019-04-18 19:03 | CT ---
EXAM: Abdoment/Pelvis w/o Contrast CLINICAL INDICATION: Abdominal pain. COMPARISON: 03/21/2014 TECHNIQUE: The CT scan was done using contiguous axial 2.5 mm noncontrast sections through the abdomen and pelvis. This exam was performed according to our departmental dose-optimization program, which includes automated exposure control, adjustment of the mA and/or kV according to patient size and/or use of iterative reconstruction technique. FINDINGS: The visualized portions of the lung bases are clear. There are several simple cysts in the liver the largest in the left hepatic lobe measuring 2.3 x 1.9 cm. The liver and gallbladder are otherwise unremarkable. The kidneys, adrenal glands, spleen, and pancreas have an unremarkable noncontrast CT appearance. The aorta contains atherosclerotic calcifications with no evidence of aneurysm. There are no dilated loops of small bowel. Diverticulosis of the colon is noted without findings of acute diverticulitis. The uterus is surgically absent. Surgical changes are noted involving the right hip. There is no free air, free fluid, or abscess. The appendix is not clearly identified. IMPRESSION: 1. No evidence of an acute intra-abdominal process. 2. Diverticulosis. Electronically signed by: Kareem Garcia MD 04/18/2019 7:02 PM [employer]
[2019-04-18 21:10] VITALS: O2SAT 93
[2019-04-18 21:13] VITALS: BP 158/68; TEMP 97.3
== END 2019-04-18 21:05 | disposition home or self-care (01) ==
LOC: ER 17:34
DX: K52.9 Noninfective gastroenteritis and colitis, unspecified (principal); N30.00 Acute cystitis without hematuria; I10 Essential (primary) hypertension; K21.9 Gastro-esophageal reflux disease without esophagitis; E78.1 Pure hyperglyceridemia
CPT/HCPCS: 74176; 80053; 81001; 83690; 85025; 87502; J2405; J7030